=== PATIENT | male | born 1950 | race Caucasian/White ===

== ENCOUNTER → 2018-02-15 | Outpatient (CLI) | payer OTHER, BC ==
[~2018-02-15] MED LIST: AMLO-114 PO; ASPCH81X PO; METO50TA8 PO; RANI150T3 PO; SIMV10TA2 PO
[2018-02-15 13:10] LABS: BASO % 0.8 %; BASO ABS # 0.06 K/uL (0-0.2); EOS % 1.7 %; EOS ABS # 0.13 K/uL (0-0.5); HEMATOCRIT 43.9 % (42-52); HEMOGLOBIN 15.1 g/dL (14.0-18.0); IG# 0.01 K/uL (0.00-0.02); LYMPH % 34.3 %; LYMPH ABS # 2.59 K/uL (1.2-3.4); MEAN CELL VOLUME 93.4 fL (80-100); MEAN CORPUSCULAR HEMOGLOBIN 32.1 pg (25-34); MEAN CORPUSCULAR HGB CONC 34.4 g/dl (32-36); MEAN PLATELET VOLUME 11.7 fL (7.4-10.4); MONO ABS # 0.83 K/uL (0.11-0.59); NEUT % 52.1 %; NEUT ABS # 3.93 K/uL (1.4-6.5); PLATELET COUNT 183 K/uL (130-400); RED CELL DISTRIBUTION WIDTH CV 13.8 % (11.5-14.5); RED CELL DISTRIBUTION WIDTH SD 47.5 fL (36.4-46.3); WHITE BLOOD COUNT 7.55 K/uL (4.8-10.8)
[2018-02-15 13:19] LABS: ALT/SGPT 34 U/L (12-78); AST/SGOT 24 U/L (15-37); BLOOD UREA NITROGEN 11 mg/dl (7-18); CARBON DIOXIDE 29 mmol/L (21-32); CHOLESTEROL 124 mg/dl (0-200); CREATININE 1.05 mg/dl (0.60-1.40); GLUCOSE 103 mg/dl (70-99); POTASSIUM 4.1 mmol/L (3.5-5.1); SODIUM 140 mmol/L (136-145)
[2018-02-15 13:22] LABS: ALKALINE PHOSPHATASE 86 U/L (45-117); LDL CHOLESTEROL CALCULATED 57 mg/dl; TOTAL PROTEIN 7.9 gm/dl (6.4-8.2)
== END | disposition home or self-care (01) ==
LOC: C.LABMFLN 09:34
PROVIDERS: ATTEND Family Medicine
DX: I10 Essential (primary) hypertension (principal); I63.9 Cerebral infarction, unspecified; E78.5 Hyperlipidemia, unspecified

== ENCOUNTER → 2018-06-09 | Outpatient (CLI) | payer OTHER, BC ==
[~2018-06-09] MED LIST changes: -AMLO-114 PO; +AMLO10TA3 PO
[2018-06-09 12:37] LABS: BASO % 0.8 %; BASO ABS # 0.05 K/uL (0-0.2); EOS % 2.3 %; EOS ABS # 0.15 K/uL (0-0.5); HEMATOCRIT 44.1 % (42-52); HEMOGLOBIN 14.8 g/dL (14.0-18.0); IG# 0.01 K/uL (0.00-0.02); LYMPH % 44.1 %; LYMPH ABS # 2.91 K/uL (1.2-3.4); MEAN CORPUSCULAR HEMOGLOBIN 31.6 pg (25-34); MEAN CORPUSCULAR HGB CONC 33.6 g/dl (32-36); MONO % 10.6 %; NEUT ABS # 2.78 K/uL (1.4-6.5); PLATELET COUNT 160 K/uL (130-400); RED CELL DISTRIBUTION WIDTH CV 14.5 % (11.5-14.5); RED CELL DISTRIBUTION WIDTH SD 50.1 fL (36.4-46.3)
[2018-06-09 13:33] LABS: ALBUMIN 4.3 gm/dl (3.4-5.0); ALKALINE PHOSPHATASE 89 U/L (45-117); ALT/SGPT 32 U/L (12-78); AST/SGOT 22 U/L (15-37); BLOOD UREA NITROGEN 12 mg/dl (7-18); CALCIUM 9.2 mg/dl (8.5-10.1); CARBON DIOXIDE 27 mmol/L (21-32); CHOLESTEROL 127 mg/dl (0-200); CREATININE 1.14 mg/dl (0.60-1.40); GLUCOSE 104 mg/dl (70-99); LDL CHOLESTEROL CALCULATED 55 mg/dl; POTASSIUM 4.5 mmol/L (3.5-5.1); SODIUM 138 mmol/L (136-145); TOTAL PROTEIN 8.4 gm/dl (6.4-8.2)
== END | disposition home or self-care (01) ==
LOC: C.LABMFLN 09:51
PROVIDERS: ATTEND Family Medicine
DX: E03.9 Hypothyroidism, unspecified (principal); E78.5 Hyperlipidemia, unspecified; K29.70 Gastritis, unspecified, without bleeding